=== PATIENT | female | born 1940 | race African-American/Black ===

== ENCOUNTER 2017-03-03 10:24 | Emergency (ER) | payer MEDICARE, BC ==
[~2017-03-03] VITALS: Wt 68.0 kg
[~2017-03-03 10:24] MED LIST: HYDROGEN PEROXIDE; MELO-37; NIACIN
--- NOTE | 2017-03-03 10:56 | ERD ---
ER Documentation Chief Complaint Date/Time DATE: 03/03/17 TIME: 10:52 Chief Complaint RIGHT HIP/BACK PAIN S/P GLF 2 DAYS AGO, NO KO HPI Patient is a 76-year-old female with a past medical history of MS who presents to the emergency department with right hip and right back pain s/p ground-level fall 2 days ago. Patient states that she was walking in her kitchen when she slipped and fell onto her right side. Patient denies any dizziness or presyncopal feelings prior to fall. Patient is currently ambulating with a walker. She denies any urine incontinence, stool incontinence, saddle anesthesia, fevers, chills or night pain. Patient does report taking Aleve as well as using ice with improvement of symptoms. Patient denies any chest pain, shortness of breath, nausea, vomiting, abdominal pain or loss consciousness. Patient denies any dysuria, hematuria, frequency or urgency. She is currently going to physical therapy to help with right sided weakness due to MS that she has had for many years now. ROS All systems reviewed and are negative except as per history of present illness. Medications Home Meds Active Scripts Ibuprofen* (Motrin*) 400 Mg Tab, 400 MG PO Q6, #20 TAB Prov:VAHID ROTH PA-C 03/03/17 Tramadol HCl (Tramadol HCl) 50 Mg Tablet, 50 MG PO Q4 Y for PAIN, #10 TAB Prov:VAHID ROTH PA-C 03/03/17 Reported Medications [Hydrogen Peroxide] No Conflict Check 03/07/11 Niacin 03/07/11 Meloxicam (Mobic) 15 Mg Tablet 03/07/11 Allergies Allergies: Coded Allergies: No Known Drug Allergies (Verified Allergy, Mild, 06/01/11) PMhx/Soc Medical and Surgical Hx: pt denies Surgical Hx History of Surgery: No Anesthesia Reaction: No Hx Neurological Disorder: Yes (MULTIPLE SCLEROSIS) Hx Respiratory Disorders: No Hx Cardiac Disorders: No Hx Psychiatric Problems: No Hx Miscellaneous Medical Probl: No (WALKS C/ WALKER) Hx Alcohol Use: No Hx Substance Use: No Hx Tobacco Use: No Smoking Status: Never smoker FmHx Family History: No diabetes Physical Exam Vitals Vital Signs Date Time Temp Pulse Resp B/P Pulse Ox O2 Delivery O2 Flow Rate FiO2 03/03/17 10:28 96.7 91 17 120/66 97 Physical Exam GENERAL: Well-developed, well-nourished female. Appears in no acute distress. HEAD: Normocephalic, atraumatic. EYES: Pupils are equally reactive bilaterally. EOMs grossly intact. No conjunctival erythema. ENT: Moist mucous membranes. No uvula deviation. No kissing tonsils. NECK: Supple. No meningismus. Normal range of motion of the neck. LUNG: Clear to auscultation bilaterally. No rhonchi, wheezing, rales or coarse breath sounds. HEART: Regular rate and rhythm. No murmurs, rubs or gallops. HIP: Tender to palpation of the right iliac crest. No hip instability noted. No pain with logroll. BACK: No ecchymosis, swelling or erythema noted. Nontender to palpation of midline thoracic or lumbar spine. Tender to palpation in the right paraspinal lumbar region. EXTREMITIES: Equal pulses bilaterally. No peripheral clubbing, cyanosis or edema. No unilateral leg swelling. NEUROLOGIC: Alert and oriented. Weakness noted in the right lower extremity however patient states chronic finding. Normal strength in bilateral upper extremities. Normal strength in left lower extremity. Normal speech. Ambulating with walker. SKIN: Normal color. Warm and dry. No rashes or lesions. Procedures/MDM ED COURSE: The patient was stable throughout ED course. I kept the patient and/or family informed of laboratory and diagnostic imaging results throughout the ED course. DIAGNOSTIC IMAGING: Read by radiologist. DIAGNOSTIC IMAGING REPORT Patient: RJ HARMON : 1940 Age: 76 Sex: F MR #: [id number] DOS: 03/03/17 1048 Ordering MD: VAHID ROTH PA-C Location: [facility] Room/Bed: PROCEDURE: XR bilateral hips. CLINICAL INDICATION: Bilateral hip pain TECHNIQUE: 4 views of the bilateral hips are available for review. COMPARISON: No prior studies are available for comparison. FINDINGS: The osseous structures, articular spaces, and surrounding soft tissues of the bilateral hips are unremarkable. No acute fracture or dislocation is seen. No radiopaque foreign body is identified. The osseous mineralization is mildly diminished. No joint dislocation is seen. No joint space abnormality is identified. IMPRESSION: 1. Unremarkable x-ray bilateral hips. 2. Mild bony demineralization. RPTAT: PP .Chang Mathias MD, MD Date Time Electronically viewed and signed by .Chang Mathias MD, MD on 03/03/2017 12:09 .B/ CC: VAHID ROTH PA-C DIAGNOSTIC IMAGING REPORT Patient: RJ HARMON : 1940 Age: 76 Sex: F MR #: [id number] DOS: 03/03/17 1048 Ordering MD: VAHID ROTH PA-C Location: [facility] Room/Bed: PROCEDURE: XR Lumbar Spine. CLINICAL INDICATION: Back pain. TECHNIQUE: Lumbar spine x-rays, 3 views. COMPARISON: None. FINDINGS: Bone density appears decreased. Vertebral body height and alignment are normal. Minimal mild L4-L5 intervertebral disk narrowing is observed. Trace anterolisthesis is also present at this level. The posterior elements are aligned. Paravertebral soft tissues are unremarkable. Abdominal aortic atherosclerotic calcification is present. IMPRESSION: Mild L4-L5 degenerative disk disease with trace anterolisthesis. RPTAT: HLST .Mary Reid MD, MD Date Time Electronically viewed and signed by .Mary Reid MD, MD on 03/03/2017 12:13 .T/ CC: VAHID ROTH PA-C DIAGNOSTIC IMAGING REPORT Patient: RJ HARMON : 1940 Age: 76 Sex: F MR #: [id number] DOS: 03/03/17 1048 Ordering MD: VAHID ROTH PA-C Location: [facility] Room/Bed: PROCEDURE: XR Sacrum and Coccyx. CLINICAL INDICATION: Sacrococcygeal pain. Status post fall. TECHNIQUE: 3 views of the sacrum and coccyx were performed. COMPARISON: No prior studies are available for comparison. FINDINGS: Bony demineralization is present. Age indeterminate deformity the distal inferior sacrum is present. Acute fracture is certainly within the differential. Further evaluation is warranted. IMPRESSION: 1. Abnormal deformity of the distal inferior sacrum. MRI of the sacrum is recommended for further assessment. An acute fracture could have this appearance. RPTAT: HMJB .Chang Mathias MD, MD Date Time Electronically viewed and signed by .Chang Mathias MD, MD on 03/03/2017 12:11 .B/ CC: VAHID ROTH PA-C DIAGNOSTIC IMAGING REPORT Patient: RJ HARMON : 1940 Age: 76 Sex: F MR #: [id number] DOS: 03/03/17 1243 Ordering MD: VAHID ROTH PA-C Location: [facility] Room/Bed: PROCEDURE: CT Pelvis. CLINICAL INDICATION: Abnormal sacral coccygeal x-ray. Evaluate for fracture. TECHNIQUE: Multiple contiguous axial CT images of the pelvis were obtained without the administration of intravenous contrast. Coronal and sagittal reconstructions were also performed. CTDIvol (mGy): 15.46; Total exam DLP (mGy -cm): 463.55. COMPARISON: Sacrococcygeal x-rays 03/03/2017. FINDINGS: Bone density is decreased. There is a subtle cortical defect within the right anterior aspect of the sacral wing which may reflect a nondisplaced fracture. The sacroiliac joints are well maintained with mild degenerative changes. Mild degenerative changes of the bilateral hip joints are observed. Femoral head and neck contours are smooth and intact, bilaterally. Sacrococcygeal alignment is normal. Facet degenerative changes of the lower lumbar spine are observed. The bladder is collapsed. The uterus and adnexa are unremarkable. Fluid is seen within the vaginal canal. The small and large intestines situated within the pelvis are unremarkable. There is no free pelvic fluid. There is no pelvic sidewall or inguinal lymphadenopathy. IMPRESSION: Low bone density with a subtle cortical defect of the anterior cortex of the right sacral wing which may reflect a nondisplaced fracture in the setting of trauma. RPTAT: HLST .Mary Reid MD, MD Date Time Electronically viewed and signed by .Mary Reid MD, MD on 03/03/2017 13:42 .T/ CC: VAHID ROTH PA-C MEDICATIONS GIVEN: She was offered analgesic medication however she declined. MEDICAL DECISION MAKING: This is a 76-year-old female with history of MS who presents to the ED with lower back pain and right hip pain after a ground-level fall 2 days ago. Vital signs were reviewed. Patient was afebrile. Patient denied any saddle anesthesia , urinary incontinence, bowel incontinence, fevers, chills, dysuria or hematuria.. Bilateral hip series was negative. Lumbar spine x-ray showed Mild L4-L5 degenerative disk disease with trace anterolisthesis. X-ray of the sacrum and coccyx showed Abnormal deformity of the distal inferior sacrum. MRI of the sacrum is recommended for further assessment. An acute fracture could have this appearance. Given these findings, I discussed the patient's presentation with my supervising physician Dr. Lane. CT scan of the patient's pelvis was obtained. CT scan showed Low bone density with a subtle cortical defect of the anterior cortex of the right sacral wing which may reflect a nondisplaced fracture in the setting of trauma. Given these findings , the patients presentation is most consistent with possible nondisplaced fracture of the sacrum and lower back pain. I have a much lower clinical concern for cauda equine syndrome, spinal fractures, compression fracture, epidural abscess, spinal metastases, osteomyelitis, aortic dissection, sciatica , lumbar strain, muscle spasm, pyelonephritis or nephrolithiasis. PRESCRIPTIONS: Ibuprofen Tramadol DISCHARGE: At this time, patient is stable for discharge and outpatient management. Patient was given a copy of all imaging studies obtained today. Patient was given instructions to follow-up with primary care physician and/or life enrichment specialist for further management of her pain and symptoms. Patient was advised to obtain a donut cushion from a medical supply store to help with her symptoms. Patient was advised to use heat and take pain medication as need. I have instructed the patient to promptly return to the ER for any new or worsening symptoms including increased pain, swelling, warmth, urinary incontinence, stool incontinence, weakness or numbness. The patient and/or family expressed understanding of and agreement with this plan. All questions were answered. Home care instructions were provided. Departure Diagnosis: Primary Impression: Hip pain Laterality: right Qualified Code: M25.551 - Pain of right hip joint Additional Impression: Back pain Back pain location: low back pain Chronicity: acute Back pain laterality: right Sciatica presence: unspecified whether sciatica present Qualified Code : M54.5 - Acute right-sided low back pain, with sciatica presence unspecified Condition: Stable Patient Instructions: Hip Precautions, Back Pain (Acute Or Chronic) Referrals: [facility] YOU HAVE RECEIVED A MEDICAL SCREENING EXAM AND THE RESULTS INDICATE THAT YOU DO NOT HAVE A CONDITION THAT REQUIRES URGENT TREATMENT IN THE EMERGENCY DEPARTMENT. FURTHER EVALUATION AND TREATMENT OF YOUR CONDITION CAN WAIT UNTIL YOU ARE SEEN IN YOUR DOCTORS OFFICE WITHIN THE NEXT 1-2 DAYS. IT IS YOUR RESPONSIBILITY TO MAKE AN APPOINTMENT FOR FOLOW-UP CARE. IF YOU HAVE A PRIMARY DOCTOR --you should call your primary doctor and schedule an appointment IF YOU DO NOT HAVE A PRIMARY DOCTOR YOU CAN CALL OUR PHYSICIAN REFERRAL HOTLINE AT IF YOU CAN NOT AFFORD TO SEE A PHYSICIAN YOU CAN CHOSE FROM THE FOLLOWING [facility] [address] [address] [facility]. [facility] [address] [facility]. [facility] [address] [facility]. [facility] [address] [facility]. [facility] [address] [facility]. [facility]. [address] [facility] YOU HAVE RECEIVED A MEDICAL SCREENING EXAM AND THE RESULTS INDICATE THAT YOU DO NOT HAVE A CONDITION THAT REQUIRES URGENT TREATMENT IN THE EMERGENCY DEPARTMENT. FURTHER EVALUATION AND TREATMENT OF YOUR CONDITION CAN WAIT UNTIL YOU ARE SEEN IN YOUR DOCTORS OFFICE WITHIN THE NEXT 1-2 DAYS. IT IS YOUR RESPONSIBILITY TO MAKE AN APPOINTMENT FOR FOLOW-UP CARE. IF YOU HAVE A PRIMARY DOCTOR --you should call your primary doctor and schedule and appointment IF YOU DO NOT HAVE A PRIMARY DOCTOR YOU CAN CALL OUR PHYSICIAN REFERRAL HOTLINE AT . IF YOU CAN NOT AFFORD TO SEE A PHYSICIAN YOU CAN CHOSE FROM THE FOLLOWING [facility] INSTITUTIONS: [facility] [address] [place] [address] [facility] [address] [place] [address] [facility] [address] [place] [address] [facility] Hours: Mon-Fri 9:00 AM - 5:00 PM Additional Instructions: Call your primary care doctor TOMORROW for an appointment during the next 1-2 days.See the doctor sooner or return here if your condition worsens before your appointment time. Unable to rule out any ligament or tendon injuries at this time. Patient advised to follow-up with her primary care physician and/or life enrichment specialist for further management of her symptoms. Patient advised to obtain a referral for an MRI on an outpatient basis if symptoms persist. VAHID ROTH PA-C Mar 03, 2017 10:56
--- NOTE | 2017-03-03 12:09 | RADRPT ---
PROCEDURE: XR bilateral hips. CLINICAL INDICATION: Bilateral hip pain TECHNIQUE: 4 views of the bilateral hips are available for review. COMPARISON: No prior studies are available for comparison. FINDINGS: The osseous structures, articular spaces, and surrounding soft tissues of the bilateral hips are unr emarkable. No acute fracture or dislocation is seen. No radiopaque foreign body is identified. The osseous mineralization is mildly diminished. No joint dislocation is seen. No joint space abnorma lity is identified. IMPRESSION: 1. Unremarkable x-ray bilateral hips. 2. Mild bony demineralization. RPTAT: PP .Chang Mathias MD, Date Time Electronically viewed and signed by .Chang Mathias MD, on 03/03/2017 12:09 .B/
--- NOTE | 2017-03-03 12:11 | RADRPT ---
PROCEDURE: XR Sacrum and Coccyx. CLINICAL INDICATION: Sacrococcygeal pain. Status post fall. TECHNIQUE: 3 views of the sacrum and coccyx were performed. COMPARISON: No prior studies are available for comparison. FINDINGS: Bony demineralization is present. Age indeterminate deformity the distal inferior sacrum is present . Acute fracture is certainly within the differential. Further evaluation is warranted. IMPRESSION: 1. Abnormal deformity of the distal inferior sacrum. MRI of the sacrum is recommended for further assessment. An acute fracture could have this appearance. RPTAT: HMJB .Chang Mathias MD, Date Time Electronically viewed and signed by .Chang Mathias MD, on 03/03/2017 12:11 .B/
--- NOTE | 2017-03-03 12:13 | RADRPT ---
PROCEDURE: XR Lumbar Spine. CLINICAL INDICATION: Back pain. TECHNIQUE: Lumbar spine x-rays, 3 views. COMPARISON: None. FINDINGS: Bone density appears decreased. Vertebral body height and alignment are normal. Minimal mild L4-L5 intervertebral disk narrowing is observed. Trace anterolisthesis is also present at this level. Th e posterior elements are aligned. Paravertebral soft tissues are unremarkable. Abdominal aortic at herosclerotic calcification is present. IMPRESSION: Mild L4-L5 degenerative disk disease with trace anterolisthesis. RPTAT: HLST .Mary Reid MD, MD Date Time Electronically viewed and signed by .Mary Reid MD, MD on 03/03/2017 12:13 .T/
--- NOTE | 2017-03-03 13:43 | RADRPT ---
PROCEDURE: CT Pelvis. CLINICAL INDICATION: Abnormal sacral coccygeal x-ray. Evaluate for fracture. TECHNIQUE: Multiple contiguous axial CT images of the pelvis were obtained without the administrat ion of intravenous contrast. Coronal and sagittal reconstructions were also performed. CTDIvol (mGy ): 15.46; Total exam DLP (mGy-cm): 463.55. COMPARISON: Sacrococcygeal x-rays 03/03/2017. FINDINGS: Bone density is decreased. There is a subtle cortical defect within the right anterior aspect of th e sacral wing which may reflect a nondisplaced fracture. The sacroiliac joints are well maintained w ith mild degenerative changes. Mild degenerative changes of the bilateral hip joints are observed. Femoral head and neck contours are smooth and intact, bilaterally. Sacrococcygeal alignment is nor mal. Facet degenerative changes of the lower lumbar spine are observed. The bladder is collapsed. The uterus and adnexa are unremarkable. Fluid is seen within the vaginal canal. The small and large intestines situated within the pelvis are unremarkable. There is no fr ee pelvic fluid. There is no pelvic sidewall or inguinal lymphadenopathy. IMPRESSION: Low bone density with a subtle cortical defect of the anterior cortex of the right sacral wing which may reflect a nondisplaced fracture in the setting of trauma. RPTAT: HLST .Mary Reid MD, Date Time Electronically viewed and signed by .Mary Reid MD, on 03/03/2017 13:42 .T/
[2017-03-03] MEDS ORDERED: TRAM50TA2 PO (13:55)
[2017-03-03] MEDS ORDERED: IBUP400T22 PO (13:57)
== END 2017-03-03 14:34 | disposition home or self-care (01) ==
LOC: FTE 10:24
DX: M25.551 Pain in right hip (principal); M54.5 Low back pain
CPT/HCPCS: 72100; 72192; 72220; 73520